=== PATIENT | male | born 1995 | race Caucasian/White ===

== ENCOUNTER 2018-02-07 07:05 | Inpatient (IN) | payer BC ==
[2018-02-07] MEDS: NS 1,000 ML IV ×4 (08:05→16:01)
[2018-02-07] MEDS: KETOROLAC 30 MG/ML VIAL (J1885) IV (08:15)
[2018-02-07] MEDS: METOCLOPRAMIDE INJ 10MG/2ML VIAL (J2765) IV (08:15)
[2018-02-07 08:23] LABS: BASO % 0.3 % (0.0-1.0); HEMATOCRIT 43.6 % (42.0-52.0); IMMATURE GRANULOCYTE % 0.4 % (0-3.0); LYMPH # 1.1 10^3/uL (1.5-6.5); LYMPH % 9.5 % (24.0-44.0); MEAN CORPUSCULAR HEMOGLOBIN 32.3 pg (27.0-33.0); MEAN CORPUSCULAR VOLUME 88.1 fl (80.0-96.0); MONO # 0.5 10^3/uL (0.0-0.8); MONO % 4.7 % (0.0-5.0); NEUTROPHILS # 9.9 10^3/uL (1.8-7.7); NEUTROPHILS % 85.1 % (36.0-66.0); PLATELET COUNT, AUTOMATED 230 10^3/uL (150-450); RED BLOOD COUNT 4.95 10^6/uL (4.30-6.10); RED CELL DISTRIBUTION WIDTH 11.7 % (11.5-14.5); WHITE BLOOD COUNT 11.6 10^3/uL (4.0-10.0)
[2018-02-07 08:24] LABS: MEAN CORPUSCULAR HGB CONC 36.7 g/dl (32.0-36.5)
[2018-02-07 08:25] LABS: ALBUMIN 4.7 GM/DL (3.2-5.2); ALBUMIN/GLOBULIN RATIO 1.24 (1.00-1.93); ALKALINE PHOSPHATASE 80 U/L (45-117); ALT/SGPT 79 U/L (12-78); AMYLASE 32 U/L (25-115); ANION GAP 10 MEQ/L (8-16); AST/SGOT 37 U/L (7-37); BILIRUBIN,DIRECT 0.3 MG/DL (0.0-0.2); BILIRUBIN,TOTAL 1.3 MG/DL (0.2-1.0); BLOOD UREA NITROGEN 19 MG/DL (7-18); C REACTIVE PROTEIN QUANTITATIV < 0.30 MG/DL (0.00-0.30); CALCIUM LEVEL 9.3 MG/DL (8.5-10.1); CARBON DIOXIDE LEVEL 23 MEQ/L (21-32); CHLORIDE LEVEL 104 MEQ/L (98-107); CPK CREATINE PHOSPHOKINASE 313 U/L (39-308); CREATININE FOR GFR 1.45 MG/DL (0.70-1.30); GLOMERULAR FILTRATION RATE > 60.0 (>60); GLUCOSE, FASTING 117 MG/DL (70-100); LIPASE 260 U/L (73-393); POTASSIUM SERUM 3.3 MEQ/L (3.5-5.1); SODIUM LEVEL 137 MEQ/L (136-145); TOTAL PROTEIN 8.5 GM/DL (6.4-8.2)
[2018-02-07 08:43] LABS: ERYTHROCYTE SEDIMENTATION RATE 3 mm/hr (0-15)
[2018-02-07] MEDS: TRIMETHOBENZAMIDE HCL INJ 200 MG/2 ML VIAL (J3250) IM (09:10)
[2018-02-07 09:19] LABS: KETONE, URINE AUTO RFX 2+ mg/dL (NEGATIVE); MUCUS, URINE RFX SMALL (NEGATIVE); NITRITE, URINE AUTO RFX NEGATIVE (NEGATIVE); RBC, URINE AUTO RFX 1 /HPF (0-3); SPECIFIC GRAVITY UR AUTO RFX 1.032 (1.002-1.035); SQUAM EPITHELIAL CELL UR AURFX 0 /HPF (0-6); WBC, URINE AUTO RFX 3 /HPF (0-3)
[2018-02-07 09:33] LABS: AMPHETAMINES LEVEL URINE NEGATIVE (NEGATIVE); BARBITURATES URINE NEGATIVE (NEGATIVE); BENZODIAZEPINES URINE NEGATIVE (NEGATIVE); CANNABINOIDS URINE POSITIVE (NEGATIVE); COCAINE METABOLITE URINE NEGATIVE (NEGATIVE); METHADONE URINE NEGATIVE (NEGATIVE); OPIATES URINE NEGATIVE (NEGATIVE); PHENCYCLIDINE URINE NEGATIVE (NEGATIVE)
[2018-02-07] MEDS: ONDANSETRON 4MG/2ML VIAL (J2405) IV ×2 (10:05→16:45)
[2018-02-07 10:17] LABS: VENOUS HCO3 18.5 MEQ/L (23.0-27.0); VENOUS O2 SATURATION 70.4 % (60.0-80.0); VENOUS PARTIAL PRESSURE CO2 27.9 mmHg (38.0-50.0); VENOUS PARTIAL PRESSURE O2 35.2 mmHg (30.0-50.0); VENOUS STANDARD HCO3 20.5 MEQ/L; VENOUS TOTAL CO2 19.4 MEQ/L (24.0-28.0)
[2018-02-07 10:21] LABS: LEUKOCYTE ESTERASE UR AUTO RFX TRACE (NEGATIVE)
[2018-02-07] MEDS: VANCOMYCIN ORAL SOL 250MG/5ML ORAL SYRINGE PO ×2 (12:00→18:15)
[2018-02-07] MEDS: PROMETHAZINE INJ 25 MG/ML VIAL (J2550) IV ×2 (12:37→21:25)
[2018-02-07] MEDS ORDERED: ISOVUE-370 76% 100ML VIAL (Q9967) As Ordered (14:44)
[2018-02-07 15:02] LABS: MAGNESIUM LEVEL 2.2 MG/DL (1.8-2.4)
[2018-02-07] MEDS: KCL 10MEQ/100ML SWI (KRUN) 10 MEQ in APPROPRIATE DILUENT 1 EA IV ×2 (16:01→16:47)
[2018-02-07] MEDS: ENOXAPARIN 40 MG/0.4 ML SYRINGE (J1650) SC (16:02)
[2018-02-07] MEDS: MORPHINE 4 MG/ML 1ML VIAL (J2270) IV ×2 (16:46→21:25)
[2018-02-07] MEDS: metroNIDAZOLE 500 MG in APPROPRIATE DILUENT 1 EA IV (18:14)
[2018-02-08] MEDS: metroNIDAZOLE 500 MG in APPROPRIATE DILUENT 1 EA IV ×3 (01:00→15:54)
[2018-02-08] MEDS: VANCOMYCIN ORAL SOL 250MG/5ML ORAL SYRINGE PO ×5 (01:00→23:29)
[2018-02-08] MEDS: PROMETHAZINE INJ 25 MG/ML VIAL (J2550) IV ×3 (04:51→22:26)
[2018-02-08] MEDS: MORPHINE 4 MG/ML 1ML VIAL (J2270) IV ×3 (04:52→22:27)
[2018-02-08] MEDS: NS 1,000 ML IV ×2 (04:52→08:35)
[2018-02-08 06:57] LABS: HEMATOCRIT 38.1 % (42.0-52.0); MEAN CORPUSCULAR HEMOGLOBIN 32.9 pg (27.0-33.0); MEAN CORPUSCULAR HGB CONC 36.5 g/dl (32.0-36.5); MEAN CORPUSCULAR VOLUME 90.1 fl (80.0-96.0); PLATELET COUNT, AUTOMATED 170 10^3/uL (150-450); RED BLOOD COUNT 4.23 10^6/uL (4.30-6.10); RED CELL DISTRIBUTION WIDTH 11.8 % (11.5-14.5); WHITE BLOOD COUNT 7.4 10^3/uL (4.0-10.0)
[2018-02-08 06:58] LABS: HEMOGLOBIN 13.9 g/dl (14.0-18.0)
[2018-02-08] MEDS: ONDANSETRON 4MG/2ML VIAL (J2405) IV ×2 (07:09→14:35)
[2018-02-08 07:24] LABS: ALBUMIN 3.7 GM/DL (3.2-5.2); ALBUMIN/GLOBULIN RATIO 1.23 (1.00-1.93); ALKALINE PHOSPHATASE 60 U/L (45-117); ALT/SGPT 56 U/L (12-78); ANION GAP 9 MEQ/L (8-16); AST/SGOT 33 U/L (7-37); BILIRUBIN,TOTAL 0.8 MG/DL (0.2-1.0); BLOOD UREA NITROGEN 9 MG/DL (7-18); CALCIUM LEVEL 8.1 MG/DL (8.5-10.1); CARBON DIOXIDE LEVEL 26 MEQ/L (21-32); CHLORIDE LEVEL 108 MEQ/L (98-107); CREATININE FOR GFR 0.97 MG/DL (0.70-1.30); GLOMERULAR FILTRATION RATE > 60.0 (>60); GLUCOSE, FASTING 94 MG/DL (70-100); LIPASE 78 U/L (73-393); MAGNESIUM LEVEL 2.1 MG/DL (1.8-2.4); POTASSIUM SERUM 3.4 MEQ/L (3.5-5.1); SODIUM LEVEL 143 MEQ/L (136-145); TOTAL PROTEIN 6.7 GM/DL (6.4-8.2)
[2018-02-08] MEDS: ENOXAPARIN 40 MG/0.4 ML SYRINGE (J1650) SC (08:35)
[2018-02-08] MEDS: KCL 40MEQ in NS 1000ML 1,000 ML IV ×2 (13:57→22:27)
[2018-02-08] MEDS: FAMOTIDINE IV BAG 20 MG in APPROPRIATE DILUENT 1 EA IV (13:57)
[2018-02-09] MEDS: ONDANSETRON 4MG/2ML VIAL (J2405) IV ×3 (00:33→21:58)
[2018-02-09] MEDS: metroNIDAZOLE 500 MG in APPROPRIATE DILUENT 1 EA IV ×3 (00:33→15:50)
[2018-02-09] MEDS: FAMOTIDINE IV BAG 20 MG in APPROPRIATE DILUENT 1 EA IV ×2 (02:27→14:08)
[2018-02-09] MEDS: PROMETHAZINE INJ 25 MG/ML VIAL (J2550) IV ×3 (04:12→19:32)
[2018-02-09] MEDS: MORPHINE 4 MG/ML 1ML VIAL (J2270) IV ×2 (04:12→21:57)
[2018-02-09] MEDS: VANCOMYCIN ORAL SOL 250MG/5ML ORAL SYRINGE PO ×3 (06:40→19:32)
[2018-02-09 07:47] LABS: HEMATOCRIT 36.1 % (42.0-52.0); MEAN CORPUSCULAR HEMOGLOBIN 31.8 pg (27.0-33.0); MEAN CORPUSCULAR VOLUME 88.3 fl (80.0-96.0); PLATELET COUNT, AUTOMATED 183 10^3/uL (150-450); RED BLOOD COUNT 4.09 10^6/uL (4.30-6.10); RED CELL DISTRIBUTION WIDTH 11.6 % (11.5-14.5); WHITE BLOOD COUNT 6.6 10^3/uL (4.0-10.0)
[2018-02-09 08:19] LABS: ALBUMIN 3.5 GM/DL (3.2-5.2); ALBUMIN/GLOBULIN RATIO 1.17 (1.00-1.93); ALKALINE PHOSPHATASE 61 U/L (45-117); ALT/SGPT 43 U/L (12-78); ANION GAP 6 MEQ/L (8-16); AST/SGOT 29 U/L (7-37); BILIRUBIN,TOTAL 0.8 MG/DL (0.2-1.0); BLOOD UREA NITROGEN 7 MG/DL (7-18); CALCIUM LEVEL 8.3 MG/DL (8.5-10.1); CARBON DIOXIDE LEVEL 27 MEQ/L (21-32); CHLORIDE LEVEL 109 MEQ/L (98-107); CREATININE FOR GFR 1.05 MG/DL (0.70-1.30); GLOMERULAR FILTRATION RATE > 60.0 (>60); GLUCOSE, FASTING 94 MG/DL (70-100); POTASSIUM SERUM 3.8 MEQ/L (3.5-5.1); SODIUM LEVEL 142 MEQ/L (136-145); TOTAL PROTEIN 6.5 GM/DL (6.4-8.2)
[2018-02-09] MEDS: ENOXAPARIN 40 MG/0.4 ML SYRINGE (J1650) SC (08:48)
[2018-02-09] MEDS: KCL 40MEQ in NS 1000ML 1,000 ML IV (12:01)
[2018-02-10] MEDS: diphenhydrAMINE 50 MG CAP PO (01:02)
[2018-02-10] MEDS: VANCOMYCIN ORAL SOL 250MG/5ML ORAL SYRINGE PO ×4 (01:02→17:11)
[2018-02-10] MEDS: metroNIDAZOLE 500 MG in APPROPRIATE DILUENT 1 EA IV ×2 (01:02→08:02)
[2018-02-10] MEDS: KCL 40MEQ in NS 1000ML 1,000 ML IV ×4 (01:03→20:31)
[2018-02-10] MEDS: FAMOTIDINE IV BAG 20 MG in APPROPRIATE DILUENT 1 EA IV ×2 (02:52→13:09)
[2018-02-10] MEDS: PROMETHAZINE INJ 25 MG/ML VIAL (J2550) IV ×3 (03:26→23:32)
[2018-02-10] MEDS: MORPHINE 4 MG/ML 1ML VIAL (J2270) IV ×5 (04:24→23:32)
[2018-02-10 07:53] LABS: HEMATOCRIT 37.4 % (42.0-52.0); HEMOGLOBIN 13.7 g/dl (13.5-17.5); MEAN CORPUSCULAR HEMOGLOBIN 32.1 pg (27.0-33.0); MEAN CORPUSCULAR VOLUME 87.6 fl (80.0-96.0); PLATELET COUNT, AUTOMATED 168 10^3/uL (150-450); RED BLOOD COUNT 4.27 10^6/uL (4.30-6.10); RED CELL DISTRIBUTION WIDTH 11.5 % (11.5-14.5); WHITE BLOOD COUNT 8.1 10^3/uL (4.0-10.0)
[2018-02-10 08:01] LABS: MEAN CORPUSCULAR HGB CONC 36.6 g/dl (32.0-36.5)
[2018-02-10] MEDS: ENOXAPARIN 40 MG/0.4 ML SYRINGE (J1650) SC (08:02)
[2018-02-10 08:18] LABS: ALBUMIN 3.7 GM/DL (3.2-5.2); ALBUMIN/GLOBULIN RATIO 1.37 (1.00-1.93); ALKALINE PHOSPHATASE 62 U/L (45-117); ALT/SGPT 49 U/L (12-78); ANION GAP 9 MEQ/L (8-16); AST/SGOT 27 U/L (7-37); BILIRUBIN,TOTAL 0.9 MG/DL (0.2-1.0); BLOOD UREA NITROGEN 8 MG/DL (7-18); CALCIUM LEVEL 8.3 MG/DL (8.5-10.1); CARBON DIOXIDE LEVEL 25 MEQ/L (21-32); CHLORIDE LEVEL 107 MEQ/L (98-107); CREATININE FOR GFR 1.03 MG/DL (0.70-1.30); GLOMERULAR FILTRATION RATE > 60.0 (>60); GLUCOSE, FASTING 84 MG/DL (70-100); POTASSIUM SERUM 3.9 MEQ/L (3.5-5.1); SODIUM LEVEL 141 MEQ/L (136-145); TOTAL PROTEIN 6.4 GM/DL (6.4-8.2)
[2018-02-10] MEDS: PANTOPRAZOLE 40MG INJ (PROTONIX) (C9113) IV (11:40)
[2018-02-10] MEDS: SUCRALFATE SUSP 1GM/10ML UD PO ×3 (11:40→20:31)
[2018-02-10] MEDS: ONDANSETRON 4MG/2ML VIAL (J2405) IV (17:10)
[2018-02-11] MEDS: VANCOMYCIN ORAL SOL 250MG/5ML ORAL SYRINGE PO ×4 (01:01→17:48)
[2018-02-11] MEDS: ONDANSETRON 4MG/2ML VIAL (J2405) IV ×4 (01:28→20:35)
[2018-02-11] MEDS: FAMOTIDINE IV BAG 20 MG in APPROPRIATE DILUENT 1 EA IV ×2 (02:09→13:40)
[2018-02-11] MEDS ORDERED: metroNIDAZOLE 500 MG in APPROPRIATE DILUENT 1 EA IV (02:30)
[2018-02-11] MEDS: KCL 40MEQ in NS 1000ML 1,000 ML IV ×4 (06:00→20:36)
[2018-02-11] MEDS: MORPHINE 4 MG/ML 1ML VIAL (J2270) IV (06:35)
[2018-02-11] MEDS: PROMETHAZINE INJ 25 MG/ML VIAL (J2550) IV ×3 (06:38→17:48)
[2018-02-11] MEDS: SUCRALFATE SUSP 1GM/10ML UD PO ×4 (07:30→20:35)
[2018-02-11] MEDS ORDERED: MORPHINE 4 MG/ML 1ML VIAL (J2270) IV (07:45)
[2018-02-11 07:48] LABS: ALBUMIN/GLOBULIN RATIO 1.38 (1.00-1.93); ALKALINE PHOSPHATASE 67 U/L (45-117); ALT/SGPT 95 U/L (12-78); ANION GAP 12 MEQ/L (8-16); AST/SGOT 69 U/L (7-37); BILIRUBIN,TOTAL 1.1 MG/DL (0.2-1.0); BLOOD UREA NITROGEN 9 MG/DL (7-18); CALCIUM LEVEL 8.6 MG/DL (8.5-10.1); CARBON DIOXIDE LEVEL 20 MEQ/L (21-32); CHLORIDE LEVEL 106 MEQ/L (98-107); CREATININE FOR GFR 0.97 MG/DL (0.70-1.30); GLOMERULAR FILTRATION RATE > 60.0 (>60); GLUCOSE, FASTING 86 MG/DL (70-100); POTASSIUM SERUM 3.7 MEQ/L (3.5-5.1); SODIUM LEVEL 138 MEQ/L (136-145); TOTAL PROTEIN 6.9 GM/DL (6.4-8.2)
[2018-02-11 08:12] LABS: HEMATOCRIT 39.8 % (42.0-52.0); HEMOGLOBIN 14.7 g/dl (13.5-17.5); MEAN CORPUSCULAR HEMOGLOBIN 32.4 pg (27.0-33.0); MEAN CORPUSCULAR VOLUME 87.7 fl (80.0-96.0); PLATELET COUNT, AUTOMATED 160 10^3/uL (150-450); RED BLOOD COUNT 4.54 10^6/uL (4.30-6.10); RED CELL DISTRIBUTION WIDTH 11.5 % (11.5-14.5); WHITE BLOOD COUNT 8.8 10^3/uL (4.0-10.0)
[2018-02-11 08:13] LABS: MEAN CORPUSCULAR HGB CONC 36.9 g/dl (32.0-36.5)
[2018-02-11] MEDS: metroNIDAZOLE 500 MG in APPROPRIATE DILUENT 1 EA IV (08:34)
[2018-02-11] MEDS: PANTOPRAZOLE 40MG INJ (PROTONIX) (C9113) IV (08:34)
[2018-02-11] MEDS: ENOXAPARIN 40 MG/0.4 ML SYRINGE (J1650) SC (08:35)
[2018-02-11] MEDS ORDERED: GASTROGRAFIN SOLUTION 30ML (Q9963) As Ordered (08:59)
[2018-02-11] MEDS: GASTROGRAFIN SOLUTION 30ML PO ×2 (09:30→10:00)
[2018-02-11] MEDS ORDERED: ISOVUE-370 76% 100ML VIAL (Q9967) As Ordered (10:41)
[2018-02-11] MEDS: LORazepam 2 MG/ML VIAL (J2060) IV ×3 (12:00→20:36)
[2018-02-11] MEDS ORDERED: ONDANSETRON 4MG/2ML VIAL (J2405) IV (12:00)
[2018-02-11] MEDS ORDERED: LORazepam 2 MG/ML VIAL (J2060) IV (15:00)
[2018-02-12] MEDS: PROMETHAZINE INJ 25 MG/ML VIAL (J2550) IV ×2 (00:12→06:35)
[2018-02-12] MEDS: VANCOMYCIN ORAL SOL 250MG/5ML ORAL SYRINGE PO ×3 (00:12→11:58)
[2018-02-12] MEDS: KCL 40MEQ in NS 1000ML 1,000 ML IV (00:34)
[2018-02-12] MEDS: FAMOTIDINE IV BAG 20 MG in APPROPRIATE DILUENT 1 EA IV (02:11)
[2018-02-12] MEDS: ONDANSETRON 4MG/2ML VIAL (J2405) IV ×2 (03:43→08:47)
[2018-02-12] MEDS: LORazepam 2 MG/ML VIAL (J2060) IV ×2 (03:43→08:47)
[2018-02-12 06:52] LABS: HEMATOCRIT 39.2 % (42.0-52.0); HEMOGLOBIN 14.4 g/dl (13.5-17.5); MEAN CORPUSCULAR HEMOGLOBIN 31.9 pg (27.0-33.0); MEAN CORPUSCULAR VOLUME 86.9 fl (80.0-96.0); PLATELET COUNT, AUTOMATED 176 10^3/uL (150-450); RED BLOOD COUNT 4.51 10^6/uL (4.30-6.10); RED CELL DISTRIBUTION WIDTH 11.6 % (11.5-14.5); WHITE BLOOD COUNT 8.2 10^3/uL (4.0-10.0)
[2018-02-12 06:59] LABS: MEAN CORPUSCULAR HGB CONC 36.7 g/dl (32.0-36.5)
[2018-02-12 07:11] LABS: ALBUMIN 3.7 GM/DL (3.2-5.2); ALBUMIN/GLOBULIN RATIO 1.19 (1.00-1.93); ALKALINE PHOSPHATASE 67 U/L (45-117); ALT/SGPT 116 U/L (12-78); ANION GAP 7 MEQ/L (8-16); AST/SGOT 67 U/L (7-37); BILIRUBIN,TOTAL 0.8 MG/DL (0.2-1.0); BLOOD UREA NITROGEN 9 MG/DL (7-18); CALCIUM LEVEL 8.5 MG/DL (8.5-10.1); CARBON DIOXIDE LEVEL 25 MEQ/L (21-32); CHLORIDE LEVEL 105 MEQ/L (98-107); CREATININE FOR GFR 1.09 MG/DL (0.70-1.30); GLOMERULAR FILTRATION RATE > 60.0 (>60); GLUCOSE, FASTING 93 MG/DL (70-100); POTASSIUM SERUM 3.8 MEQ/L (3.5-5.1); SODIUM LEVEL 137 MEQ/L (136-145); TOTAL PROTEIN 6.8 GM/DL (6.4-8.2)
[2018-02-12] MEDS: SUCRALFATE SUSP 1GM/10ML UD PO ×2 (07:52→11:58)
[2018-02-12] MEDS: PANTOPRAZOLE 40MG TAB (PROTONIX) PO (08:46)
[2018-02-12] MEDS: ENOXAPARIN 40 MG/0.4 ML SYRINGE (J1650) SC (08:47)
== END 2018-02-12 12:15 | disposition home or self-care (01) | DRG 248 ==
LOC: M ED 07:05 → M ED INP 14:26 → M PED 15:35
DX: A04.72 Enterocolitis due to Clostridium difficile, not specified as recurrent (principal); N17.9 Acute kidney failure, unspecified; R11.10 Vomiting, unspecified; E87.6 Hypokalemia

== ENCOUNTER → 2018-03-09 | Outpatient (REF) | payer BC ==
[2018-03-09 14:43] LABS: HEMATOCRIT 42.7 % (42.0-52.0); HEMOGLOBIN 14.9 g/dl (13.5-17.5); MEAN CORPUSCULAR HEMOGLOBIN 32.3 pg (27.0-33.0); MEAN CORPUSCULAR HGB CONC 34.9 g/dl (32.0-36.5); MEAN CORPUSCULAR VOLUME 92.4 fl (80.0-96.0); PLATELET COUNT, AUTOMATED 194 10^3/uL (150-450); RED BLOOD COUNT 4.62 10^6/uL (4.30-6.10); RED CELL DISTRIBUTION WIDTH 12.4 % (11.5-14.5)
[2018-03-09 15:14] LABS: ALBUMIN/GLOBULIN RATIO 1.29 (1.00-1.93); ALKALINE PHOSPHATASE 69 U/L (45-117); ALT/SGPT 69 U/L (12-78); ANION GAP 6 MEQ/L (8-16); AST/SGOT 29 U/L (7-37); BILIRUBIN,TOTAL 0.5 MG/DL (0.2-1.0); BLOOD UREA NITROGEN 8 MG/DL (7-18); CALCIUM LEVEL 8.8 MG/DL (8.5-10.1); CARBON DIOXIDE LEVEL 30 MEQ/L (21-32); CHLORIDE LEVEL 106 MEQ/L (98-107); CHOLESTEROL LEVEL 135 MG/DL (<200); CHOLESTEROL RISK RATIO 2.596 (<5); CREATININE FOR GFR 1.04 MG/DL (0.70-1.30); GLOMERULAR FILTRATION RATE > 60.0 (>60); GLUCOSE, FASTING 82 MG/DL (70-100); HDL CHOLESTEROL 52 MG/DL (>40); LDL CHOLESTEROL 67.8 MG/DL (<100); NON-HDL-C 83 MG/DL; POTASSIUM SERUM 4.2 MEQ/L (3.5-5.1); SODIUM LEVEL 142 MEQ/L (136-145); TOTAL PROTEIN 7.1 GM/DL (6.4-8.2); TRIGLYCERIDES LEVEL 76 MG/DL (<150)
== END ==
LOC: M SFHCLACO 09:54
DX: Z00.00 Encounter for general adult medical examination without abnormal findings (principal); A04.72 Enterocolitis due to Clostridium difficile, not specified as recurrent
CPT/HCPCS: 80053

== ENCOUNTER → 2018-03-14 | Outpatient (REF) | payer BC | LOC: M SFHCLACO 15:16 | DX: A04.72 Enterocolitis due to Clostridium difficile, not specified as recurrent (principal) ==

== ENCOUNTER 2018-04-20 17:34 | Emergency (ER) | payer BC ==
[2018-04-20 21:22] LABS: BEDSIDE GLUCOSE 121 MG/DL (70-105)
[2018-04-20] MEDS: NS 1,000 ML IV (21:24)
[2018-04-20] MEDS: METOCLOPRAMIDE INJ 10MG/2ML VIAL (J2765) IV (21:24)
[2018-04-20] MEDS: ONDANSETRON 4 MG ORAL DISINTEGRATING TAB (Q0162 PER 1MG) PO (22:58)
== END 2018-04-20 22:53 | disposition home or self-care (01) ==
LOC: M ED 17:34
DX: R10.84 Generalized abdominal pain (principal); R11.2 Nausea with vomiting, unspecified; Z86.19 Personal history of other infectious and parasitic diseases
CPT/HCPCS: Q0162

== ENCOUNTER → 2018-04-21 | Outpatient (REF) | payer BC | LOC: M LAB REF 10:58 | DX: R10.9 Unspecified abdominal pain (principal); R11.2 Nausea with vomiting, unspecified | CPT/HCPCS: 87507 ==

== ENCOUNTER 2018-05-20 08:39 | Emergency (ER) | payer BC ==
[2018-05-20] MEDS: NS 1,000 ML IV (09:40)
[2018-05-20] MEDS: ONDANSETRON 4MG/2ML VIAL (J2405) IV (09:40)
[2018-05-20] MEDS: KETOROLAC 30 MG/ML VIAL (J1885) IV (09:40)
[2018-05-20 09:50] LABS: BASO % 0.1 % (0.0-1.0); EOS % 0.1 % (0.0-3.0); HEMATOCRIT 44.8 % (42.0-52.0); HEMOGLOBIN 16.2 g/dl (13.5-17.5); IMMATURE GRANULOCYTE % 0.5 % (0-3.0); LYMPH % 6.5 % (24.0-44.0); MEAN CORPUSCULAR HEMOGLOBIN 32.7 pg (27.0-33.0); MEAN CORPUSCULAR HGB CONC 36.2 g/dl (32.0-36.5); MEAN CORPUSCULAR VOLUME 90.5 fl (80.0-96.0); MONO # 0.7 10^3/uL (0.0-0.8); MONO % 4.6 % (0.0-5.0); NEUTROPHILS # 13.7 10^3/uL (1.8-7.7); NEUTROPHILS % 88.2 % (36.0-66.0); PLATELET COUNT, AUTOMATED 262 10^3/uL (150-450); RED BLOOD COUNT 4.95 10^6/uL (4.30-6.10); WHITE BLOOD COUNT 15.6 10^3/uL (4.0-10.0)
[2018-05-20 09:54] LABS: KETONE, URINE AUTO RFX 1+ mg/dL (NEGATIVE); LEUKOCYTE ESTERASE UR AUTO RFX NEGATIVE (NEGATIVE); MUCUS, URINE RFX SMALL (NEGATIVE); NITRITE, URINE AUTO RFX NEGATIVE (NEGATIVE); RBC, URINE AUTO RFX 4 /HPF (0-3); SPECIFIC GRAVITY UR AUTO RFX 1.033 (1.002-1.035); SQUAM EPITHELIAL CELL UR AURFX 0 /HPF (0-6); WBC, URINE AUTO RFX 3 /HPF (0-3)
[2018-05-20 10:05] LABS: ALBUMIN 4.9 GM/DL (3.2-5.2); ALBUMIN/GLOBULIN RATIO 1.36 (1.00-1.93); ALKALINE PHOSPHATASE 83 U/L (45-117); ALT/SGPT 37 U/L (12-78); AMYLASE 33 U/L (25-115); ANION GAP 11 MEQ/L (8-16); AST/SGOT 20 U/L (7-37); BILIRUBIN,TOTAL 0.8 MG/DL (0.2-1.0); BLOOD UREA NITROGEN 14 MG/DL (7-18); CALCIUM LEVEL 9.8 MG/DL (8.5-10.1); CARBON DIOXIDE LEVEL 26 MEQ/L (21-32); CHLORIDE LEVEL 101 MEQ/L (98-107); CREATININE FOR GFR 1.49 MG/DL (0.70-1.30); GLOMERULAR FILTRATION RATE > 60.0 (>60); GLUCOSE, FASTING 118 MG/DL (70-100); LIPASE 111 U/L (73-393); POTASSIUM SERUM 3.3 MEQ/L (3.5-5.1); SODIUM LEVEL 138 MEQ/L (136-145); TOTAL PROTEIN 8.5 GM/DL (6.4-8.2)
[2018-05-20] MEDS: POTASSIUM CHLORIDE 10 MEQ SR TABLET PO (10:59)
[2018-05-20] MEDS: CIPROFLOXACIN 500 MG TAB PO (10:59)
[2018-05-20] MEDS: hydrOXYzine 25 MG TAB PO (12:31)
== END 2018-05-20 12:50 | disposition home or self-care (01) ==
LOC: M ED 08:39
DX: R10.31 Right lower quadrant pain (principal); R10.32 Left lower quadrant pain; R11.2 Nausea with vomiting, unspecified; E87.6 Hypokalemia; Z79.899 Other long term (current) drug therapy; F12.20 Cannabis dependence, uncomplicated; Z87.19 Personal history of other diseases of the digestive system
CPT/HCPCS: J2405

== ENCOUNTER 2018-05-21 07:13 | Inpatient (IN) | payer BC ==
[2018-05-21 07:50] LABS: BASO % 0.1 % (0.0-1.0); HEMATOCRIT 42.4 % (42.0-52.0); HEMOGLOBIN 15.5 g/dl (13.5-17.5); IMMATURE GRANULOCYTE % 0.4 % (0-3.0); LYMPH % 7.8 % (24.0-44.0); MEAN CORPUSCULAR HEMOGLOBIN 32.6 pg (27.0-33.0); MEAN CORPUSCULAR HGB CONC 36.6 g/dl (32.0-36.5); MEAN CORPUSCULAR VOLUME 89.3 fl (80.0-96.0); MONO # 0.5 10^3/uL (0.0-0.8); MONO % 4.2 % (0.0-5.0); NEUTROPHILS # 10.8 10^3/uL (1.8-7.7); NEUTROPHILS % 87.5 % (36.0-66.0); PLATELET COUNT, AUTOMATED 229 10^3/uL (150-450); RED BLOOD COUNT 4.75 10^6/uL (4.30-6.10); RED CELL DISTRIBUTION WIDTH 11.9 % (11.5-14.5); WHITE BLOOD COUNT 12.4 10^3/uL (4.0-10.0)
[2018-05-21] MEDS: ONDANSETRON 4MG/2ML VIAL (J2405) IV ×6 (07:50→21:49)
[2018-05-21] MEDS: NS 1,000 ML IV ×4 (07:50→09:09)
[2018-05-21] MEDS: MORPHINE 2 MG/ML 1ML SYRINGE (J2270) IV ×2 (07:52)
[2018-05-21 08:12] LABS: ALBUMIN 4.7 GM/DL (3.2-5.2); ALBUMIN/GLOBULIN RATIO 1.27 (1.00-1.93); ALKALINE PHOSPHATASE 80 U/L (45-117); ALT/SGPT 37 U/L (12-78); ANION GAP 10 MEQ/L (8-16); AST/SGOT 19 U/L (7-37); BILIRUBIN,DIRECT 0.2 MG/DL (0.0-0.2); BLOOD UREA NITROGEN 18 MG/DL (7-18); CALCIUM LEVEL 9.3 MG/DL (8.5-10.1); CARBON DIOXIDE LEVEL 25 MEQ/L (21-32); CHLORIDE LEVEL 104 MEQ/L (98-107); CREATININE FOR GFR 1.47 MG/DL (0.70-1.30); GLOMERULAR FILTRATION RATE > 60.0 (>60); GLUCOSE, FASTING 113 MG/DL (70-100); LIPASE 78 U/L (73-393); POTASSIUM SERUM 3.4 MEQ/L (3.5-5.1); SODIUM LEVEL 139 MEQ/L (136-145); TOTAL PROTEIN 8.4 GM/DL (6.4-8.2)
[2018-05-21] MEDS ORDERED: ISOVUE-370 76% 100ML VIAL (Q9967) As Ordered ×2 (08:19)
[2018-05-21] MEDS: LORazepam 2 MG/ML VIAL (J2060) IV ×2 (08:28)
[2018-05-21] MEDS: SUMAtriptan SUCCINATE 6 MG/0.5 ML VIAL SC ×2 (13:13)
[2018-05-21] MEDS: POTASSIUM CHLORIDE 10 MEQ SR TABLET PO ×2 (13:14)
[2018-05-21] MEDS: PROMETHAZINE INJ 25 MG/ML VIAL (J2550) IV ×4 (13:23→19:57)
[2018-05-21] MEDS: KCL 10MEQ/100ML SWI (KRUN) 10 MEQ in APPROPRIATE DILUENT 1 EA IV ×2 (13:59→15:03)
[2018-05-21 15:48] LABS: KETONE, URINE AUTO RFX 1+ mg/dL (NEGATIVE); LEUKOCYTE ESTERASE UR AUTO RFX NEGATIVE (NEGATIVE); NITRITE, URINE AUTO RFX NEGATIVE (NEGATIVE); RBC, URINE AUTO RFX 2 /HPF (0-3); SQUAM EPITHELIAL CELL UR AURFX 0 /HPF (0-6); WBC, URINE AUTO RFX 1 /HPF (0-3)
[2018-05-21 15:52] LABS: SPECIFIC GRAVITY UR AUTO RFX >1.060 (1.002-1.035)
[2018-05-21 16:06] LABS: AMPHETAMINES LEVEL URINE NEGATIVE (NEGATIVE); BARBITURATES URINE NEGATIVE (NEGATIVE); BENZODIAZEPINES URINE NEGATIVE (NEGATIVE); CANNABINOIDS URINE POSITIVE (NEGATIVE); COCAINE METABOLITE URINE NEGATIVE (NEGATIVE); METHADONE URINE NEGATIVE (NEGATIVE); OPIATES URINE POSITIVE (NEGATIVE); PHENCYCLIDINE URINE NEGATIVE (NEGATIVE)
[2018-05-21] MEDS: MULTIVITAMIN -ADULT INJECTION 10 ML, THIAMINE INJection 100 MG, FOLIC ACID 1 MG in NS 1... IV ×2 (16:09)
[2018-05-21] MEDS: PANTOPRAZOLE 40MG INJ (PROTONIX) (C9113) IV ×2 (18:11)
[2018-05-21 19:10] LABS: ANION GAP 8 MEQ/L (8-16); BLOOD UREA NITROGEN 14 MG/DL (7-18); CALCIUM LEVEL 8.6 MG/DL (8.5-10.1); CARBON DIOXIDE LEVEL 25 MEQ/L (21-32); CHLORIDE LEVEL 109 MEQ/L (98-107); CREATININE FOR GFR 1.28 MG/DL (0.70-1.30); GLOMERULAR FILTRATION RATE > 60.0 (>60); GLUCOSE, FASTING 118 MG/DL (70-100); MAGNESIUM LEVEL 2.1 MG/DL (1.8-2.4); POTASSIUM SERUM 3.7 MEQ/L (3.5-5.1); SODIUM LEVEL 142 MEQ/L (136-145)
[2018-05-21] MEDS: HEPARIN SOD (PORCINE) 5000 UNITS/ML VIAL SC ×2 (19:57)
[2018-05-21] MEDS: KCL 20MEQ IN D5/0.45NS 1000ML 1,000 ML IV (21:49)
[2018-05-22] MEDS: METOCLOPRAMIDE INJ 10MG/2ML VIAL (J2765) IV ×4 (01:55→20:12)
[2018-05-22] MEDS: diphenhydrAMINE INJ 50MG/ML VIAL (J1200) IV ×2 (01:57)
[2018-05-22] MEDS ORDERED: METOCLOPRAMIDE INJ 10MG/2ML VIAL (J2765) IV ×2 (02:00)
[2018-05-22] MEDS: KCL 20MEQ IN D5/0.45NS 1000ML 1,000 ML IV ×4 (04:38→22:17)
[2018-05-22] MEDS: PROMETHAZINE INJ 25 MG/ML VIAL (J2550) IV ×4 (04:41→15:15)
[2018-05-22 06:16] LABS: HEMATOCRIT 38.7 % (42.0-52.0); MEAN CORPUSCULAR HEMOGLOBIN 32.8 pg (27.0-33.0); MEAN CORPUSCULAR HGB CONC 36.2 g/dl (32.0-36.5); MEAN CORPUSCULAR VOLUME 90.6 fl (80.0-96.0); PLATELET COUNT, AUTOMATED 177 10^3/uL (150-450); RED BLOOD COUNT 4.27 10^6/uL (4.30-6.10); RED CELL DISTRIBUTION WIDTH 11.9 % (11.5-14.5)
[2018-05-22 06:38] LABS: ALBUMIN 3.8 GM/DL (3.2-5.2); ALBUMIN/GLOBULIN RATIO 1.23 (1.00-1.93); ALKALINE PHOSPHATASE 68 U/L (45-117); ALT/SGPT 29 U/L (12-78); ANION GAP 8 MEQ/L (8-16); AST/SGOT 16 U/L (7-37); BLOOD UREA NITROGEN 9 MG/DL (7-18); CALCIUM LEVEL 8.3 MG/DL (8.5-10.1); CARBON DIOXIDE LEVEL 25 MEQ/L (21-32); CHLORIDE LEVEL 106 MEQ/L (98-107); CREATININE FOR GFR 1.04 MG/DL (0.70-1.30); GLOMERULAR FILTRATION RATE > 60.0 (>60); GLUCOSE, FASTING 111 MG/DL (70-100); MAGNESIUM LEVEL 1.8 MG/DL (1.8-2.4); PHOSPHORUS LEVEL 1.8 MG/DL (2.5-4.9); SODIUM LEVEL 139 MEQ/L (136-145); TOTAL PROTEIN 6.9 GM/DL (6.4-8.2)
[2018-05-22] MEDS: THIAMINE 100 MG TAB PO ×2 (09:00)
[2018-05-22] MEDS: FOLIC ACID 1 MG TAB PO ×2 (09:00)
[2018-05-22] MEDS: POTASSIUM PHOSPHATE INJ 20 MMOL in D5W 250 ML IV (09:00)
[2018-05-22] MEDS: MULTIVITAMINS/MINERALS THERAP 1 TAB PO ×2 (09:00)
[2018-05-22] MEDS: HEPARIN SOD (PORCINE) 5000 UNITS/ML VIAL SC ×4 (09:00→20:15)
[2018-05-22 14:31] LABS: ANION GAP 6 MEQ/L (8-16); BLOOD UREA NITROGEN 7 MG/DL (7-18); CALCIUM LEVEL 8.9 MG/DL (8.5-10.1); CARBON DIOXIDE LEVEL 28 MEQ/L (21-32); CHLORIDE LEVEL 106 MEQ/L (98-107); CREATININE FOR GFR 1.07 MG/DL (0.70-1.30); GLOMERULAR FILTRATION RATE > 60.0 (>60); GLUCOSE, FASTING 112 MG/DL (70-100); MAGNESIUM LEVEL 2.1 MG/DL (1.8-2.4); POTASSIUM SERUM 3.7 MEQ/L (3.5-5.1); SODIUM LEVEL 140 MEQ/L (136-145)
[2018-05-22] MEDS: SUCRALFATE SUSP 1GM/10ML UD PO ×4 (14:32→17:30)
[2018-05-22] MEDS: PANTOPRAZOLE 40MG INJ (PROTONIX) (C9113) IV ×2 (14:32)
[2018-05-23] MEDS: PANTOPRAZOLE 40MG INJ (PROTONIX) (C9113) IV ×4 (00:05→11:43)
[2018-05-23] MEDS: PROMETHAZINE INJ 25 MG/ML VIAL (J2550) IV ×4 (00:06→23:11)
[2018-05-23] MEDS: ONDANSETRON 4MG/2ML VIAL (J2405) IV ×6 (04:33→19:43)
[2018-05-23 07:03] LABS: HEMATOCRIT 40.4 % (42.0-52.0); HEMOGLOBIN 14.6 g/dl (13.5-17.5); MEAN CORPUSCULAR HEMOGLOBIN 32.4 pg (27.0-33.0); MEAN CORPUSCULAR HGB CONC 36.1 g/dl (32.0-36.5); MEAN CORPUSCULAR VOLUME 89.8 fl (80.0-96.0); PLATELET COUNT, AUTOMATED 179 10^3/uL (150-450); RED CELL DISTRIBUTION WIDTH 11.7 % (11.5-14.5); WHITE BLOOD COUNT 8.8 10^3/uL (4.0-10.0)
[2018-05-23 07:30] LABS: ANION GAP 7 MEQ/L (8-16); BLOOD UREA NITROGEN 6 MG/DL (7-18); CALCIUM LEVEL 8.7 MG/DL (8.5-10.1); CARBON DIOXIDE LEVEL 29 MEQ/L (21-32); CHLORIDE LEVEL 102 MEQ/L (98-107); CREATININE FOR GFR 1.09 MG/DL (0.70-1.30); GLOMERULAR FILTRATION RATE > 60.0 (>60); GLUCOSE, FASTING 113 MG/DL (70-100); POTASSIUM SERUM 3.5 MEQ/L (3.5-5.1); SODIUM LEVEL 138 MEQ/L (136-145)
[2018-05-23] MEDS: KCL 20MEQ IN D5/0.45NS 1000ML 1,000 ML IV ×3 (08:35→15:52)
[2018-05-23] MEDS: FOLIC ACID 1 MG TAB PO ×2 (08:36)
[2018-05-23] MEDS: THIAMINE 100 MG TAB PO ×2 (08:36)
[2018-05-23] MEDS: MULTIVITAMINS/MINERALS THERAP 1 TAB PO ×2 (08:36)
[2018-05-23] MEDS: SUCRALFATE SUSP 1GM/10ML UD PO ×6 (08:36→18:04)
[2018-05-23] MEDS: HEPARIN SOD (PORCINE) 5000 UNITS/ML VIAL SC ×4 (08:36→19:43)
[2018-05-23] MEDS: METOCLOPRAMIDE INJ 10MG/2ML VIAL (J2765) IV ×2 (15:03)
[2018-05-24] MEDS: PANTOPRAZOLE 40MG INJ (PROTONIX) (C9113) IV ×4 (00:06→17:45)
[2018-05-24] MEDS: KCL 20MEQ IN D5/0.45NS 1000ML 1,000 ML IV ×4 (00:52→21:58)
[2018-05-24] MEDS: METOCLOPRAMIDE INJ 10MG/2ML VIAL (J2765) IV ×6 (02:12→17:44)
[2018-05-24 07:35] LABS: HEMATOCRIT 40.1 % (42.0-52.0); HEMOGLOBIN 14.7 g/dl (13.5-17.5); MEAN CORPUSCULAR HEMOGLOBIN 32.3 pg (27.0-33.0); MEAN CORPUSCULAR VOLUME 88.1 fl (80.0-96.0); PLATELET COUNT, AUTOMATED 179 10^3/uL (150-450); RED BLOOD COUNT 4.55 10^6/uL (4.30-6.10); RED CELL DISTRIBUTION WIDTH 11.6 % (11.5-14.5); WHITE BLOOD COUNT 9.2 10^3/uL (4.0-10.0)
[2018-05-24 07:37] LABS: MEAN CORPUSCULAR HGB CONC 36.1 g/dl (32.0-36.5)
[2018-05-24 07:52] LABS: ANION GAP 6 MEQ/L (8-16); BLOOD UREA NITROGEN 7 MG/DL (7-18); CALCIUM LEVEL 8.5 MG/DL (8.5-10.1); CARBON DIOXIDE LEVEL 29 MEQ/L (21-32); CHLORIDE LEVEL 104 MEQ/L (98-107); CREATININE FOR GFR 1.07 MG/DL (0.70-1.30); GLOMERULAR FILTRATION RATE > 60.0 (>60); GLUCOSE, FASTING 111 MG/DL (70-100); MAGNESIUM LEVEL 2.2 MG/DL (1.8-2.4); POTASSIUM SERUM 3.4 MEQ/L (3.5-5.1); SODIUM LEVEL 139 MEQ/L (136-145)
[2018-05-24] MEDS: ONDANSETRON 4MG/2ML VIAL (J2405) IV ×6 (08:15→20:50)
[2018-05-24] MEDS: HEPARIN SOD (PORCINE) 5000 UNITS/ML VIAL SC ×6 (08:15→20:50)
[2018-05-24] MEDS: SUCRALFATE SUSP 1GM/10ML UD PO ×6 (08:15→17:45)
[2018-05-24] MEDS: MULTIVITAMINS/MINERALS THERAP 1 TAB PO ×2 (08:15)
[2018-05-24] MEDS: FOLIC ACID 1 MG TAB PO ×2 (08:15)
[2018-05-24] MEDS: THIAMINE 100 MG TAB PO ×2 (08:15)
[2018-05-24] MEDS ORDERED: E-Z-PAQUE 96% w/w SUSP 176GM BTL As Ordered ×2 (15:13)
[2018-05-24] MEDS ORDERED: E-Z-GAS II EFFERVESCENT PACKET (SODIUM BICARB./CITRIC ACID/SIMETHICONE) As Ordered ×2 (15:13)
[2018-05-24] MEDS ORDERED: E-Z-HD 98% w/w 340GM SUSP BTL As Ordered ×2 (15:14)
[2018-05-24] MEDS: POTASSIUM CHLORIDE 10 MEQ SR TABLET PO ×2 (17:45)
[2018-05-24] MEDS: AMITRIPTYLINE 50 MG TAB PO ×2 (20:50)
[2018-05-25] MEDS: PANTOPRAZOLE 40MG INJ (PROTONIX) (C9113) IV ×4 (00:38→13:45)
[2018-05-25] MEDS: KCL 20MEQ IN D5/0.45NS 1000ML 1,000 ML IV ×2 (04:38→11:27)
[2018-05-25 07:17] LABS: HEMATOCRIT 40.8 % (42.0-52.0); HEMOGLOBIN 14.8 g/dl (13.5-17.5); MEAN CORPUSCULAR HEMOGLOBIN 32.7 pg (27.0-33.0); MEAN CORPUSCULAR VOLUME 90.1 fl (80.0-96.0); PLATELET COUNT, AUTOMATED 171 10^3/uL (150-450); RED BLOOD COUNT 4.53 10^6/uL (4.30-6.10); RED CELL DISTRIBUTION WIDTH 11.8 % (11.5-14.5); WHITE BLOOD COUNT 7.1 10^3/uL (4.0-10.0)
[2018-05-25 07:19] LABS: MEAN CORPUSCULAR HGB CONC 36.3 g/dl (32.0-36.5)
[2018-05-25 07:22] LABS: ANION GAP 5 MEQ/L (8-16); BLOOD UREA NITROGEN 7 MG/DL (7-18); CALCIUM LEVEL 8.7 MG/DL (8.5-10.1); CARBON DIOXIDE LEVEL 30 MEQ/L (21-32); CHLORIDE LEVEL 102 MEQ/L (98-107); CREATININE FOR GFR 1.21 MG/DL (0.70-1.30); GLOMERULAR FILTRATION RATE > 60.0 (>60); GLUCOSE, FASTING 99 MG/DL (70-100); MAGNESIUM LEVEL 2.1 MG/DL (1.8-2.4); POTASSIUM SERUM 3.5 MEQ/L (3.5-5.1); SODIUM LEVEL 137 MEQ/L (136-145)
[2018-05-25] MEDS: FOLIC ACID 1 MG TAB PO ×2 (07:45)
[2018-05-25] MEDS: SUCRALFATE SUSP 1GM/10ML UD PO ×6 (07:45→17:49)
[2018-05-25] MEDS: HEPARIN SOD (PORCINE) 5000 UNITS/ML VIAL SC ×2 (07:46)
[2018-05-25] MEDS: MULTIVITAMINS/MINERALS THERAP 1 TAB PO ×2 (07:46)
[2018-05-25] MEDS: THIAMINE 100 MG TAB PO ×2 (07:46)
[2018-05-25] MEDS ORDERED: PROPOFOL 200 MG/20 ML VIAL As Ordered ×2 (12:31)
[2018-05-25] MEDS ORDERED: NS 1,000 ML IV ×2 (13:45)
== END 2018-05-25 19:40 | disposition home or self-care (01) | DRG 241 ==
LOC: M MS5PR 05-22 16:41 → M ED 07:13 → M ED INP 12:00 → M MS5PR 16:35
PROC: 0DB78ZX Excision of Stomach, Pylorus, Via Natural or Artificial Opening Endoscopic, Diagnostic (ICD-10-PCS; principal; 2018-05-25 12:29)
DX: K29.70 Gastritis, unspecified, without bleeding (principal); N17.9 Acute kidney failure, unspecified; E87.2 Acidosis; F12.188 Cannabis abuse with other cannabis-induced disorder; E86.0 Dehydration; E87.6 Hypokalemia; F12.10 Cannabis abuse, uncomplicated; L40.9 Psoriasis, unspecified; G43.A0 Cyclical vomiting, in migraine, not intractable; T40.7X5A Adverse effect of cannabis (derivatives), initial encounter

== ENCOUNTER 2018-06-11 15:22 | Emergency (ER) | payer BC ==
[2018-06-11] MEDS: METOCLOPRAMIDE INJ 10MG/2ML VIAL (J2765) IV (16:12)
[2018-06-11] MEDS: KETOROLAC 30 MG/ML VIAL (J1885) IV (16:12)
[2018-06-11] MEDS: NS 1,000 ML IV ×3 (16:12→17:21)
[2018-06-11] MEDS: PANTOPRAZOLE 40MG INJ (PROTONIX) (C9113) IV (16:19)
[2018-06-11 16:24] LABS: BASO % 0.1 % (0.0-1.0); HEMATOCRIT 42.9 % (42.0-52.0); HEMOGLOBIN 15.5 g/dl (13.5-17.5); IMMATURE GRANULOCYTE % 0.4 % (0-3.0); LYMPH # 0.6 10^3/uL (1.5-6.5); LYMPH % 5.3 % (24.0-44.0); MEAN CORPUSCULAR HEMOGLOBIN 32.8 pg (27.0-33.0); MEAN CORPUSCULAR HGB CONC 36.1 g/dl (32.0-36.5); MEAN CORPUSCULAR VOLUME 90.7 fl (80.0-96.0); MONO # 0.2 10^3/uL (0.0-0.8); NEUTROPHILS # 9.9 10^3/uL (1.8-7.7); NEUTROPHILS % 92.2 % (36.0-66.0); PLATELET COUNT, AUTOMATED 217 10^3/uL (150-450); RED BLOOD COUNT 4.73 10^6/uL (4.30-6.10); RED CELL DISTRIBUTION WIDTH 11.9 % (11.5-14.5); WHITE BLOOD COUNT 10.8 10^3/uL (4.0-10.0)
[2018-06-11 16:43] LABS: ALBUMIN 4.2 GM/DL (3.2-5.2); ALBUMIN/GLOBULIN RATIO 1.14 (1.00-1.93); ALKALINE PHOSPHATASE 76 U/L (45-117); ALT/SGPT 42 U/L (12-78); ANION GAP 10 MEQ/L (8-16); AST/SGOT 18 U/L (7-37); BILIRUBIN,DIRECT 0.2 MG/DL (0.0-0.2); BILIRUBIN,TOTAL 0.6 MG/DL (0.2-1.0); BLOOD UREA NITROGEN 11 MG/DL (7-18); CALCIUM LEVEL 9.2 MG/DL (8.5-10.1); CARBON DIOXIDE LEVEL 25 MEQ/L (21-32); CHLORIDE LEVEL 106 MEQ/L (98-107); CREATININE FOR GFR 1.24 MG/DL (0.70-1.30); GLOMERULAR FILTRATION RATE > 60.0 (>60); GLUCOSE, FASTING 140 MG/DL (70-100); LIPASE 131 U/L (73-393); POTASSIUM SERUM 3.9 MEQ/L (3.5-5.1); SODIUM LEVEL 141 MEQ/L (136-145); TOTAL PROTEIN 7.9 GM/DL (6.4-8.2)
== END 2018-06-11 18:35 | disposition home or self-care (01) ==
LOC: M ED 15:22
DX: R11.10 Vomiting, unspecified (principal); K29.70 Gastritis, unspecified, without bleeding; Z86.19 Personal history of other infectious and parasitic diseases; Z79.899 Other long term (current) drug therapy
CPT/HCPCS: C9113

== ENCOUNTER 2018-06-13 06:17 | Emergency (ER) | payer BC ==
[2018-06-13 08:11] LABS: BASO % 0.1 % (0.0-1.0); HEMATOCRIT 38.8 % (42.0-52.0); HEMOGLOBIN 14.3 g/dl (13.5-17.5); IMMATURE GRANULOCYTE % 0.3 % (0-3.0); LYMPH # 0.8 10^3/uL (1.5-6.5); MEAN CORPUSCULAR HEMOGLOBIN 32.9 pg (27.0-33.0); MEAN CORPUSCULAR VOLUME 89.4 fl (80.0-96.0); MONO # 0.4 10^3/uL (0.0-0.8); MONO % 3.4 % (0.0-5.0); NEUTROPHILS # 10.4 10^3/uL (1.8-7.7); NEUTROPHILS % 89.2 % (36.0-66.0); PLATELET COUNT, AUTOMATED 202 10^3/uL (150-450); RED BLOOD COUNT 4.34 10^6/uL (4.30-6.10); WHITE BLOOD COUNT 11.6 10^3/uL (4.0-10.0)
[2018-06-13] MEDS: METOCLOPRAMIDE INJ 10MG/2ML VIAL (J2765) IV (08:11)
[2018-06-13] MEDS: NS 1,000 ML IV (08:11)
[2018-06-13 08:26] LABS: MEAN CORPUSCULAR HGB CONC 36.9 g/dl (32.0-36.5)
[2018-06-13 08:48] LABS: ALBUMIN 3.8 GM/DL (3.2-5.2); ALBUMIN/GLOBULIN RATIO 1.09 (1.00-1.93); ALKALINE PHOSPHATASE 64 U/L (45-117); ALT/SGPT 34 U/L (12-78); ANION GAP 13 MEQ/L (8-16); AST/SGOT 17 U/L (7-37); BILIRUBIN,DIRECT 0.2 MG/DL (0.0-0.2); BILIRUBIN,TOTAL 0.9 MG/DL (0.2-1.0); BLOOD UREA NITROGEN 10 MG/DL (7-18); CALCIUM LEVEL 8.7 MG/DL (8.5-10.1); CARBON DIOXIDE LEVEL 23 MEQ/L (21-32); CHLORIDE LEVEL 103 MEQ/L (98-107); CREATININE FOR GFR 0.97 MG/DL (0.70-1.30); GLOMERULAR FILTRATION RATE > 60.0 (>60); GLUCOSE, FASTING 108 MG/DL (70-100); LIPASE 322 U/L (73-393); SODIUM LEVEL 139 MEQ/L (136-145); TOTAL PROTEIN 7.3 GM/DL (6.4-8.2)
[2018-06-13] MEDS: POTASSIUM CHLORIDE 10 MEQ SR TABLET PO (09:41)
[2018-06-13 10:37] LABS: AMORPHOUS SEDIMENT LARGE (NEGATIVE); APPEARANCE, URINE TURBID (CLEAR); BACTERIA, URINE AUTO NEGATIVE (NEGATIVE); BILIRUBIN, URINE AUTO NEGATIVE (NEGATIVE); BLOOD, URINE BLOOD NEGATIVE (NEGATIVE); COLOR, URINE YELLOW (YELLOW); GLUCOSE, URINE (UA) AUTO NEGATIVE (NEGATIVE); KETONE, URINE AUTO 2+ mg/dL (NEGATIVE); LEUKOCYTE ESTERASE, URINE AUTO NEGATIVE (NEGATIVE); MUCUS, URINE SMALL (NEGATIVE); NITRITE, URINE AUTO NEGATIVE (NEGATIVE); PROTEIN, URINE AUTO NEGATIVE (NEGATIVE); RBC, URINE AUTO 0 /HPF (0-3); SQUAMOUS EPITHELIAL CELL UR AU 0 /HPF (0-6); UROBILINOGEN, URINE AUTO 0.2 mg/dL (0.0-2.0); WBC, URINE AUTO 3 /HPF (0-3)
[2018-06-13 11:04] LABS: AMPHETAMINES LEVEL URINE NEGATIVE (NEGATIVE); BARBITURATES URINE NEGATIVE (NEGATIVE); BENZODIAZEPINES URINE NEGATIVE (NEGATIVE); CANNABINOIDS URINE POSITIVE (NEGATIVE); COCAINE METABOLITE URINE NEGATIVE (NEGATIVE); METHADONE URINE NEGATIVE (NEGATIVE); OPIATES URINE NEGATIVE (NEGATIVE); PHENCYCLIDINE URINE NEGATIVE (NEGATIVE)
== END 2018-06-13 11:32 | disposition home or self-care (01) ==
LOC: M ED 06:17
DX: F41.9 Anxiety disorder, unspecified (principal); E87.6 Hypokalemia; Z86.19 Personal history of other infectious and parasitic diseases
CPT/HCPCS: J2765

== ENCOUNTER 2018-11-11 15:17 | Emergency (ER) | payer BC ==
[~2018-11-11] VITALS: Ht 180.3 cm; Wt 93.2 kg
[~2018-11-11 15:17] MED LIST: B-1100TA2; BENT10CA PO; FIRS50SO PO; FOLI1TAB11; FOLI1TAB11 PO; HYDR-3363 PO; ONDA4TAB6 PO; PRIL20CA9 PO; PRIL20TA2; PRIL20TA2 PO; PROM25TA12 PR; REGL10TA6 PO; THIA100TA PO; VANC250C2; VIST25CA; VIST25CA PO; VITMTA; VITMTA PO; ZOFR4TAB14 PO
[2018-11-11] MEDS ORDERED: NS 1,000 ML IV ONE (16:00)
[2018-11-11] MEDS ORDERED: HALOPERIDOL 5 MG/ML VIAL (J1630) IV STA (16:07)
[2018-11-11] MEDS ORDERED: DICYCLOMINE INJ 20MG/2ML (J0500) IM ONE (16:15)
[2018-11-11] MEDS ORDERED: KETOROLAC 30 MG/ML VIAL (J1885) IV ONE (16:15)
[2018-11-11 16:18] LABS: BASO % 0.1 % (0.0-1.0); HEMATOCRIT 43.3 % (42.0-52.0); LYMPH # 0.6 10^3/uL (1.5-6.5); LYMPH % 5.3 % (24.0-44.0); MEAN CORPUSCULAR HEMOGLOBIN 33.2 pg (27.0-33.0); MEAN CORPUSCULAR VOLUME 89.8 fl (80.0-96.0); MONO # 0.3 10^3/uL (0.0-0.8); MONO % 2.9 % (0.0-5.0); NEUTROPHILS # 10.7 10^3/uL (1.8-7.7); NEUTROPHILS % 91.4 % (36.0-66.0); PLATELET COUNT, AUTOMATED 236 10^3/uL (150-450); RED BLOOD COUNT 4.82 10^6/uL (4.30-6.10); WHITE BLOOD COUNT 11.7 10^3/uL (4.0-10.0)
[2018-11-11 16:21] LABS: VENOUS BASE EXCESS 2.4 (-2.0-2.0); VENOUS HCO3 24.3 MEQ/L (23.0-27.0); VENOUS O2 SATURATION 70.3 % (60.0-80.0); VENOUS PARTIAL PRESSURE CO2 30.8 mmHg (38.0-50.0); VENOUS PARTIAL PRESSURE O2 31.9 mmHg (30.0-50.0); VENOUS PH 7.515 UNITS (7.330-7.430); VENOUS STANDARD HCO3 25.8 MEQ/L; VENOUS TOTAL CO2 25.3 MEQ/L (24.0-28.0)
[2018-11-11] MEDS ORDERED: CAPSAICIN 0.025% CR 60 GM TOP STA (16:45)
[2018-11-11 16:47] LABS: ALBUMIN 4.8 GM/DL (3.2-5.2); ALT/SGPT 23 U/L (12-78); AMYLASE 32 U/L (25-115); BILIRUBIN,DIRECT 0.2 MG/DL (0.0-0.2); BILIRUBIN,TOTAL 0.7 MG/DL (0.2-1.0); BLOOD UREA NITROGEN 12 MG/DL (7-18); CALCIUM LEVEL 9.8 MG/DL (8.5-10.1); CARBON DIOXIDE LEVEL 23 MEQ/L (21-32); CHLORIDE LEVEL 105 MEQ/L (98-107); CREATININE FOR GFR 1.45 MG/DL (0.70-1.30); GLOMERULAR FILTRATION RATE > 60.0 (>60); GLUCOSE, FASTING 158 MG/DL (70-100); LIPASE 61 U/L (73-393); MAGNESIUM LEVEL 1.8 MG/DL (1.8-2.4); POTASSIUM SERUM 4.2 MEQ/L (3.5-5.1); SODIUM LEVEL 141 MEQ/L (136-145); TOTAL PROTEIN 8.1 GM/DL (6.4-8.2)
[2018-11-11] MEDS ORDERED: ISOVUE-370 76% 100ML VIAL (Q9967) As Ordered ONE (16:58)
[2018-11-11] MEDS ORDERED: NS IV ONE (17:00)
[2018-11-11] MEDS ORDERED: DILUENT IV ONE (17:00)
[2018-11-11] MEDS ORDERED: PIPERACILLIN/TAZOBACTAM SOD 3.375 GM in D5W MINI-BAG PLUS 50 ML IV ONE (17:15)
--- NOTE | 2018-11-11 17:32 | ECGEPIP ---
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
--- NOTE | 2018-11-11 18:00 | REP ---
Clinical: Severe abdominal pain. Technique: Axial contrast enhanced images from the lung bases to the pubic symphysis with coronal and sagittal re-formations using 100 ml Isovue 370 intravenous contrast material. Comparison: 05/21/2018. Findings: Lung bases are clear. Visualized heart and pericardium normal. Liver, spleen, pancreas, gallbladder, bilateral adrenal glands and kidneys are normal. The enteric system demonstrates mild mucosal thickening of the mid ascending through proximal transverse colon with small but prominent lymph nodes suggesting infectious/inflammatory colitis. The small bowel and remainder of the large bowel appears normal. The terminal ileum and appendix are normal. Pelvis demonstrates normal bladder and age appropriate prostate/seminal vesicles. No ascites. No free air. No retroperitoneal adenopathy. Abdominal aorta without aneurysm or dissection. Musculoskeletal structures demonstrate chronic bilateral L4 spondylolysis without spondylolisthesis. Impression: 1. A mild infectious/inflammatory colitis involving the ascending through proximal transverse colon is suggested and should be correlated clinically. 2. No further acute abdominopelvic pathology appreciated. No ascites. Electronically Signed by Rosendo Edwards MD 11/11/2018 05:51 P
[2018-11-11 19:36] VITALS: BP 140/73
[2018-11-12] MEDS ORDERED: REGL10TA6 PO (10:48)
[2018-11-12] MEDS ORDERED: ZOFR4TAB14 PO (10:48)
[2018-11-12] MEDS ORDERED: CIPR-249 PO (11:37)
[2018-11-12] MEDS ORDERED: HALO20TA PO (21:23)
[2018-11-12] MEDS ORDERED: K-TA10TA2 PO (21:24)
[2018-11-13] MEDS ORDERED: DICY10CA13 PO (23:12)
[2018-11-13] MEDS ORDERED: ONDA4TAB6 PO (23:12)
[2018-11-13] MEDS ORDERED: METO10TA2 PO (23:14)
[2018-11-14] MEDS ORDERED: HALO0.5H PO (00:44)
[2018-11-14] MEDS ORDERED: PEPC1TAB5 PO (00:44)
== END 2018-11-11 19:38 | disposition home or self-care (01) ==
LOC: M ED 15:17
DX: R74.0 Nonspecific elevation of levels of transaminase and lactic acid dehydrogenase [LDH] (principal); F12.188 Cannabis abuse with other cannabis-induced disorder; Z86.19 Personal history of other infectious and parasitic diseases; Z79.899 Other long term (current) drug therapy
CPT/HCPCS: 36415; 74177; 80048; 80076; 82150; 82803; 83605; 83690; 83735; 85025; 87040; 93005; 96365; 96372; 96375; 99284; J0500; J1630; J1885; J2543; Q9967

== ENCOUNTER 2018-11-12 09:40 | Emergency (ER) | payer BC ==
[~2018-11-12] VITALS: Ht 180.3 cm; Wt 93.2 kg
[2018-11-12] MEDS ORDERED: NS 1,000 ML IV ONE (10:00)
[2018-11-12] MEDS ORDERED: METOCLOPRAMIDE INJ 10MG/2ML VIAL (J2765) IV ONE (10:00)
[2018-11-12 10:08] LABS: BASO % 0.1 % (0.0-1.0); HEMATOCRIT 38.4 % (42.0-52.0); LYMPH # 0.9 10^3/uL (1.5-6.5); LYMPH % 8.3 % (24.0-44.0); MEAN CORPUSCULAR HEMOGLOBIN 32.6 pg (27.0-33.0); MEAN CORPUSCULAR HGB CONC 36.2 g/dl (32.0-36.5); MEAN CORPUSCULAR VOLUME 89.9 fl (80.0-96.0); MONO # 0.4 10^3/uL (0.0-0.8); MONO % 3.9 % (0.0-5.0); NEUTROPHILS # 9.1 10^3/uL (1.8-7.7); NEUTROPHILS % 87.4 % (36.0-66.0); PLATELET COUNT, AUTOMATED 207 10^3/uL (150-450); RED BLOOD COUNT 4.27 10^6/uL (4.30-6.10); WHITE BLOOD COUNT 10.4 10^3/uL (4.0-10.0)
[2018-11-12 10:12] LABS: HEMOGLOBIN 13.9 g/dl (13.5-17.5)
[2018-11-12 10:41] LABS: ALBUMIN 4.2 GM/DL (3.2-5.2); ALT/SGPT 22 U/L (12-78); AMYLASE 56 U/L (25-115); BILIRUBIN,TOTAL 0.6 MG/DL (0.2-1.0); BLOOD UREA NITROGEN 12 MG/DL (7-18); CALCIUM LEVEL 9.1 MG/DL (8.5-10.1); CARBON DIOXIDE LEVEL 24 MEQ/L (21-32); CHLORIDE LEVEL 108 MEQ/L (98-107); CREATININE FOR GFR 1.04 MG/DL (0.70-1.30); ETHYL ALCOHOL (ETHANOL) 0.003 % (0.000-0.010); GLOMERULAR FILTRATION RATE > 60.0 (>60); GLUCOSE, FASTING 116 MG/DL (70-100); LIPASE 312 U/L (73-393); POTASSIUM SERUM 3.3 MEQ/L (3.5-5.1); SODIUM LEVEL 141 MEQ/L (136-145); TOTAL PROTEIN 7.4 GM/DL (6.4-8.2)
[2018-11-12] MEDS ORDERED: KETOROLAC 30 MG/ML VIAL (J1885) IV ONE (10:45)
[2018-11-12] MEDS ORDERED: ONDANSETRON 4MG/2ML VIAL (J2405) IV ONE (10:45)
[2018-11-12] MEDS ORDERED: REGL10TA6 PO (10:48)
[2018-11-12] MEDS ORDERED: ZOFR4TAB14 PO (10:48)
[2018-11-12 11:04] LABS: AMPHETAMINES LEVEL URINE NEGATIVE (NEGATIVE); BARBITURATES URINE NEGATIVE (NEGATIVE); BENZODIAZEPINES URINE NEGATIVE (NEGATIVE); CANNABINOIDS URINE POSITIVE (NEGATIVE); COCAINE METABOLITE URINE NEGATIVE (NEGATIVE); METHADONE URINE NEGATIVE (NEGATIVE); OPIATES URINE NEGATIVE (NEGATIVE); PHENCYCLIDINE URINE NEGATIVE (NEGATIVE)
[2018-11-12] MEDS ORDERED: CIPR-249 PO (11:37)
--- NOTE | 2018-11-12 11:38 | REP ---
Clinical: Abdominal pain with nausea and vomiting. Technique: Axial noncontrast images from the lung bases to the pubic symphysis with coronal and sagittal re-formations. Comparison: 11/11/2018, 05/21/2018. Findings: Lung bases are clear. Liver, spleen, pancreas, gallbladder, bilateral adrenal glands and kidneys are normal for noncontrast evaluation. The enteric system is without obstruction or or definite acute process. Normal terminal ileum and appendix are identified in the right lower quadrant. As previously suggested, a very mild colitis cannot be excluded. Pelvis demonstrates collapsed normal bladder and age appropriate prostate/seminal vesicles. No ascites. No free air. No adenopathy. Abdominal aorta without aneurysm. Musculoskeletal structures without focal osseous abnormality. Impression: 1. No definite acute abdominopelvic pathology appreciated. 2. As previously suggested, a very mild colitis cannot be excluded. 3. No ascites, focal inflammatory stranding, or significant adenopathy noted. Electronically Signed by Rosendo Edwards MD 11/12/2018 11:29 A
[2018-11-12] MEDS ORDERED: CIPROFLOXACIN 500 MG TAB PO ONE (11:45)
[2018-11-12 11:49] VITALS: BP 133/75
[2018-11-12] MEDS ORDERED: HALO20TA PO (21:23)
[2018-11-12] MEDS ORDERED: K-TA10TA2 PO (21:24)
[2018-11-13] MEDS ORDERED: ONDA4TAB6 PO (23:12)
[2018-11-13] MEDS ORDERED: DICY10CA13 PO (23:12)
[2018-11-13] MEDS ORDERED: METO10TA2 PO (23:14)
[2018-11-14] MEDS ORDERED: PEPC1TAB5 PO (00:44)
[2018-11-14] MEDS ORDERED: HALO0.5H PO (00:44)
== END 2018-11-12 11:51 | disposition home or self-care (01) ==
LOC: M ED 09:40
DX: K52.9 Noninfective gastroenteritis and colitis, unspecified (principal); R10.9 Unspecified abdominal pain; F12.10 Cannabis abuse, uncomplicated; F17.200 Nicotine dependence, unspecified, uncomplicated
CPT/HCPCS: 74176; 80053; 80307; 81001; 82150; 83605; 83690; 85025; 96374; 96375; 99284; G0480; J1885; J2405; J2765

== ENCOUNTER 2018-11-12 19:34 | Emergency (ER) | payer BC ==
[~2018-11-12] VITALS: Ht 180.3 cm; Wt 93.2 kg
[~2018-11-12 19:34] MED LIST changes: +CIPR-249 PO
[2018-11-12] MEDS ORDERED: HALOPERIDOL 5 MG/ML VIAL (J1630) IM STA (20:27)
[2018-11-12] MEDS ORDERED: NS 1,000 ML IV ONE (20:30)
[2018-11-12] MEDS ORDERED: POTASSIUM CHL PWD 20 MEQ PACKET PO ONE (20:30)
[2018-11-12] MEDS ORDERED: HALO20TA PO (21:23)
[2018-11-12] MEDS ORDERED: K-TA10TA2 PO (21:24)
[2018-11-12] MEDS ORDERED: HALOPERIDOL 5 MG TAB As Ordered ONE (21:29)
[2018-11-12 21:36] VITALS: BP 120/75
[2018-11-13] MEDS ORDERED: HALOPERIDOL 0.5 MG TAB PO ONE (02:00)
--- NOTE | 2018-11-13 07:45 | ED PDOC ---
Post-Departure Follow-Up radiology rpeort faxed to Giovanna Rodrigues MD Nov 13, 2018 07:45
[2018-11-13] MEDS ORDERED: ONDA4TAB6 PO (23:12)
[2018-11-13] MEDS ORDERED: DICY10CA13 PO (23:12)
[2018-11-13] MEDS ORDERED: METO10TA2 PO (23:14)
[2018-11-14] MEDS ORDERED: PEPC1TAB5 PO (00:44)
[2018-11-14] MEDS ORDERED: HALO0.5H PO (00:44)
== END 2018-11-12 21:39 | disposition home or self-care (01) ==
LOC: M ED 19:34
DX: D64.9 Anemia, unspecified (principal); E87.6 Hypokalemia; R10.9 Unspecified abdominal pain; F12.10 Cannabis abuse, uncomplicated
CPT/HCPCS: 96372; 99284; J1630